=== PATIENT | female | born 1950 | race Caucasian/White ===

== ENCOUNTER 2018-04-07 09:25 | Emergency (ER) | payer OTHER ==
[2018-04-07 09:38] VITALS: BP 137/65; PULSE 64; TEMP 98.6; BMI 24.9
--- NOTE | 2018-04-07 09:41 | PDOC ---
Attending Attestation - Resident Resident Name: Brenda Sepulveda - ED Attending Attestation I have performed the following: I have examined & evaluated the patient, The case was reviewed & discussed with the resident, I agree w/resident's findings & plan, Exceptions are as noted - HPI HPI: 04/07/18 09:50 67yo female with L middle finger distal tip redness and swelling. States she had her nails done a week ago and they cut her cuticle. Has been applying topical abx to the area, but the redness is still there and mild swelling. Full ROM of the finger. No ttp along the flexor tendon. No felon palpated, no paronychia palpated or visualized. No f/c. Sensation intact. No fluctuance. - Physicial Exam PE: 04/07/18 09:55 Gen: aaox3, nad, ambulates with a steady gait Ext: L hand middle finger distal phalanx mild redness, mild swelling, no felon palpated, no paronychia, midl erythema, mild ttp, no induration, no draining, no ttp along the flexor tendon sheath. brisk cap refill, no herpetic tejas - Medical Decision Making 04/07/18 09:40 I, Dr. Yamileth Sierra, DO, attest that this document has been prepared under my direction and personally reviewed by me in its entirety. I further attest, that it accurately reflects all work, treatment, procedures and medical decision -making performed by me. 04/07/18 09:56 a/p: 67yo female with L middle finger distal tip erythem and swelling -mild cellulitis of the distal tip of the finger -will give abx -recommended warm soaks -no felon or paronychia palpated or visualized -no flexor tenosynovitis -stable for dc to home discussed all reasons to return to the ED and follow up
--- NOTE | 2018-04-07 09:49 | PDOC ---
History of Present Illness - General Chief Complaint: Pain Stated Complaint: LEFT MIDDLE FINGER PAIN Time Seen by Provider: 04/07/18 09:31 History Source: Patient Exam Limitations: No Limitations - History of Present Illness Initial Comments: 04/07/18 09:40 67 year old woman with a history of hypothyroidism, diverticulitis who presents with 3 days of L middle finger swelling and erythema from the fingertip to the DIP. The patient denies trauma, fever or purulent drainage. She denies a history of diabetes. She reports that she got her nails done last week and felt that the skin on her finger may have broken at that time. She denies any numbness or tingling on the finger or hand. Denies muscle weakness. PCP: Dileep Past History - Past Medical History Allergies/Adverse Reactions: Allergies Allergy/AdvReac Type Severity Reaction Status Date / Time No Known Allergies Allergy Verified 04/07/18 09:42 Home Medications: Ambulatory Orders Clindamycin [Cleocin -] 150 mg PO TID 10 Days #90 capsule 04/07/18 Ibuprofen [Motrin Ib] 200 mg PO ONCE 04/07/18 Levothyroxine [Synthroid -] 88 mcg PO DAILY 04/07/18 Cardiac Disorders: Yes (SVT, ablation) COPD: No GI Disorders: Yes (DIVERTICULITIS) Thyroid Disease: Yes (HYPOTHYROIDISM) - Surgical History Abdominal Surgery: Yes (COLON RESECTION 10/2014) GI Surgery: Yes (Partial colon resection October 2014) - Suicide/Smoking/Psychosocial Hx Smoking History: Never smoked Have you smoked in the past 12 months: No Hx Alcohol Use: No Drug/Substance Use Hx: No Substance Use Type: None Hx Substance Use Treatment: No Review of Systems - Review of Systems Able to Perform ROS?: Yes Is the patient limited Ukrainian proficient: No Constitutional: No: Chills, Diaphoresis, Fever Respiratory: No: Shortness of Breath Cardiac (ROS): No: Chest Pain Integumentary: Yes: Change in Hair/Nails, Erythema. No: Bruising, Flushing, Lumps, Pallor, Pruritus *Physical Exam - Vital Signs Last Vital Signs Temp Pulse Resp BP Pulse Ox 98.6 F 64 16 137/65 100 04/07/18 09:26 04/07/18 09:26 04/07/18 09:26 04/07/18 09:04/07/18 09:26 - Physical Exam Comments: 04/07/18 09:49 GENERAL: Awake, alert, and fully oriented, in no acute distress HEAD: No signs of trauma, normocephalic, atraumatic EYES: EOMI, sclera anicteric, conjunctiva clear ENT: oropharynx clear without exudates. Moist mucosa NECK: Normal ROM, supple EXTREMITIES : Normal inspection, Normal range of motion, no edema. L middle fingertip to DIP erythematous and swollen without paronychia or pus collection NEUROLOGICAL: Cranial nerves II through XII grossly intact. Normal speech, normal gait, no focal sensorimotor deficits SKIN: Warm, Dry, normal turgor, no rashes or lesions noted Moderate Sedation - Procedure Monitoring Vital Signs: Procedure Monitoring Vital Signs Temperature 98.6 F 04/07/18 09:26 Pulse Rate 64 04/07/18 09:26 Respiratory Rate 16 04/07/18 09:26 Blood Pressure 137/65 04/07/18 09:26 O2 Sat by Pulse Oximetry (%) 100 04/07/18 09:26 Medical Decision Making - Medical Decision Making 04/07/18 10:01 67 year old woman with a history of hypothyroidism, diverticulitis who presents with 3 days of L middle finger swelling and erythema from the fingertip to the DIP. The patient denies trauma, fever or purulent drainage. She denies a history of diabetes. ED Course: Patient with cellulitic appearing digit w/o purulent drainage or neurovascular compromise Will treat with oral antibiotics and advise warm soaks. Patient given first dose of antibiotics. Given follow up instruction and return precautions. Patient expresses understand and agrees to plan. *DC/Admit/Observation/Transfer Diagnosis at time of Disposition: Cellulitis - Discharge Dispostion Disposition: HOME Condition at time of disposition: Good Decision to Admit order: No - Prescriptions Prescriptions: Clindamycin [Cleocin -] 150 mg PO TID 10 Days #90 capsule - Referrals Referrals: Yandy Falk [Primary Care Provider] - - Patient Instructions Printed Discharge Instructions: DI for Cellulitis -- Adult Additional Instructions: You were seen in the ED for complaints of finger swelling and redness. In the ED you were evaluated and given antibiotics. You were given a prescription for antibiotics, Clindamycin. Please take medication as directed. Soak your finger in warm water bath or warm towel for 10min several times a day. Return to the ED immediately if you experience worsening swelling of the finger , numbness, tingling, hand weakness or fever. - Post Discharge Activity
[2018-04-07] MEDS ORDERED: CLINDAMYCIN HCL 150 MG CAPSULE (FP) ONE (09:50)
[2018-04-07] MEDS ORDERED: CLINDAMYCIN PALMITATE HCL ORAL SOLUTION 75 MG/5 ML BOTTLE PO ONE (09:50)
[2018-04-07] MEDS ORDERED: CLINDAMYCIN HCL 150 MG CAPSULE (FP) PO ONE (09:55)
== END 2018-04-07 10:03 | disposition home or self-care (01) ==
LOC: FER 09:25 → SUPCPDRO 09:25 → FER 10:03
DX: L03.012 Cellulitis of left finger (principal); E03.9 Hypothyroidism, unspecified; E11.9 Type 2 diabetes mellitus without complications
CPT/HCPCS: 99281-25

== ENCOUNTER 2018-04-09 09:15 | Emergency (ER) | payer OTHER ==
--- NOTE | 2018-04-09 09:17 | PDOC ---
History of Present Illness - General Chief Complaint: Redness To Affected Area Stated Complaint: LEFT MIDDLE FINGER PAIN - History of Present Illness Initial Comments: The patient is a 67F w/ a history of hypothyroidism who presents for evaluation of L middle finger pain/redness that has been worsening for 5d. The patient was seen here on Monday, told that she did not have a collection that could be drained and was prescribed Clindamycin for her cellulitis. She has been taking the antibiotics but states that the pain has continued to worsen. She endorses a dull/achy, non-radiating, constant L middle finger pain that is mildly alleviated by Tylenol. Denies fevers/chills, LYON, vision changes, chest pain, SOB, or changes in strength/sensation. 04/09/18 09:50 Past History - Past Medical History Allergies/Adverse Reactions: Allergies Allergy/AdvReac Type Severity Reaction Status Date / Time No Known Allergies Allergy Verified 04/07/18 09:42 Home Medications: Ambulatory Orders Clindamycin [Cleocin -] 450 mg PO Q8H #90 capsule 04/07/18 Ibuprofen [Motrin Ib] 200 mg PO ONCE 04/07/18 Levothyroxine [Synthroid -] 88 mcg PO DAILY 04/07/18 Cardiac Disorders: Yes (SVT, ablation) COPD: No GI Disorders: Yes (DIVERTICULITIS) Thyroid Disease: Yes (HYPOTHYROIDISM) - Surgical History Abdominal Surgery: Yes (COLON RESECTION 10/2014) GI Surgery: Yes (Partial colon resection October 2014) - Suicide/Smoking/Psychosocial Hx Smoking History: Never smoked Have you smoked in the past 12 months: No Hx Alcohol Use: No Drug/Substance Use Hx: No Substance Use Type: None Hx Substance Use Treatment: No Review of Systems - Review of Systems Able to Perform ROS?: Yes Comments:: GENERAL/CONSTITUTIONAL: No fever or chills. No weakness RESPIRATORY: Denies cough, hemoptysis GASTROINTESTINAL: +nausea w/ Abx; Denies V/C/D MUSCULOSKELETAL: +chronic arthritis; +L middle finger pain SKIN: +L middle finger redness HEMATOLOGIC/LYMPHATIC: No anemia, easy bleeding, or history of blood clots 04/09/18 09:52 Is the patient limited Sinhala proficient: No *Physical Exam - Vital Signs Vital Signs Temp Pulse Resp BP Pulse Ox 98.2 F 60 16 123/67 100 04/09/18 09:16 04/09/18 09:16 04/09/18 09:16 04/09/18 09:16 04/09/18 09:16 04/09/18 09:53 - Physical Exam Comments: GENERAL: Awake, alert, and fully oriented, in no acute distress HEAD: No signs of trauma, normocephalic, atraumatic EYES: PERRLA, EOMI, sclera anicteric, conjunctiva clear LUNGS: No distress, speaks full sentences, clear to auscultation bilaterally HEART: Regular rate and rhythm, normal S1 and S2, no murmurs appreciated, peripheral pulses normal and equal bilaterally EXTREMITIES : L lateral middle finger paronychia w/ mild surrounding erythema. BUE FROM. NEUROLOGICAL: Sensation to BUE intact and equal b/l, strength 5/5 throughout SKIN: mild L middle finger erythema surrounding L later paronychia 04/09/18 09:53 Procedures - Incision and Drainage I&D Site: Left: Other (L middle finger (paronychia)) Anesthesia: 1% Lidocaine Volume(ml): 2 Blade Size: 11 Attempts: 1 (Single incision made into later nail bed with approximately 1cc of purulent fluid expressed.) Plain Packing: No Complications: none (Patient tolerated the procedure well) Dressing: Yes (Bacitracin and band-aid applied) Medical Decision Making - Medical Decision Making The patient is a 67F w/ a history of hypothyroidism and diverticulitis who presents for evaluation of L middle finger paronychia ED Course L middle finger digital block and subsequent I&D, for full details refer to procedure note Patient given note for flight missed today Wound care, discharge instructions, and return precautions given -Pt to complete Clindamycin prescription received on 04/07/2018 Patient in agreement and verbalized understanding Dispo: home 04/09/18 09:57 *DC/Admit/Observation/Transfer Diagnosis at time of Disposition: Paronychia - Discharge Dispostion Disposition: HOME Condition at time of disposition: Improved Decision to Admit order: No - Referrals Referrals: Yandy Falk [Primary Care Provider] - - Patient Instructions Printed Discharge Instructions: DI for Paronychia Additional Instructions: You were seen in the Emergency Department today for evaluation of a left middle finger paronychia (infection) which was drained. Review the handout provided at discharge. Be sure to wash you hands frequently, pat dry, and keep the area clean. Do not apply nail guinean until the area is completely healed. Continue the antibiotics you were prescribed. Return to the Emergency Department if you develop fevers/chills, worsening pain , worsening redness, change in sensation/strength, or any new/concerning symptoms. - Post Discharge Activity Forms/Work/School Notes: Back to Work
[2018-04-09 09:24] VITALS: BP 123/67; PULSE 60; TEMP 98.2; BMI 24.8
[2018-04-09] MEDS ORDERED: LIDOCAINE 1%/EPI 1:100000 (20 ML MULTI DOSE VIAL) INF ONE (09:30)
[2018-04-09] MEDS ORDERED: LIDOCAINE HCL 1%, 10 MG/ML (20ML VIAL) ONE (09:31)
--- NOTE | 2018-04-09 11:26 | PDOC ---
Attending Attestation - Resident Resident Name: BonniesarahLissaMat - ED Attending Attestation I have performed the following: I have examined & evaluated the patient, The case was reviewed & discussed with the resident, I agree w/resident's findings & plan, Exceptions are as noted - HPI HPI: 04/09/18 17:26 Reviewed residents HPI - Physicial Exam PE: 04/09/18 17:26 Reviewed residents PE - Medical Decision Making 04/09/18 17:26 Patient on clindamycin for infected finger now with interval development of paronychia Under sterile conditions digital nerve block performed paronychia drained with removal of 1 mL of pus cleaned bandaged patient will continue clindamycin return to ED for wound check in 2 days Findings, the need for follow-up and strict return instructions discussed with patient.
== END 2018-04-09 09:59 | disposition home or self-care (01) ==
LOC: FER 09:15
PROC: 0H9QXZZ Drainage of Finger Nail, External Approach (ICD-10-PCS; principal; 2018-04-09)
DX: L03.012 Cellulitis of left finger (principal); E03.9 Hypothyroidism, unspecified; E11.9 Type 2 diabetes mellitus without complications
CPT/HCPCS: 10060; 99282-25

== ENCOUNTER 2018-04-11 12:41 | Inpatient (IN) | payer OTHER ==
--- NOTE | 2018-04-11 13:30 | PDOC ---
History of Present Illness - General Chief Complaint: Wound Stated Complaint: LEFT 3RD FINGER INFECTION Time Seen by Provider: 04/11/18 12:46 History Source: Patient Exam Limitations: No Limitations - History of Present Illness Initial Comments: 04/11/18 13:37 67F w/ a history of hypothyroidism who presents for evaluation of L middle finger pain/redness that has been worsening for 5d, with initial presentation here in the ED for finger cellulitis after cuticle injury during manicure session, and started on clindamycin at that time, then on 04/09/18 for development of paronychia of left middle finger, s/p I&D at that time, has been on clindamycin x over 1 week already. Left finger redness spreading along the inner aspect. No fever or chills, no drainage. No paresthesias or weakness. She notes throbbing intermittently at times. ROS: Constitutional: no fevers or chills. MUSCULOSKELETAL: finger pain. SKIN: +finger erythema. no discharge, no rash. No wounds. Hematologic: no easy bruising/bleeding. No weakness, numbness or tingling. Allergic/Immunologic: no allergies All other systems reviewed and negative, or as documented in HPI. PE: General: NAD, well appearing Vascular: 2+ radialis pulses symmetric and equal. Neuro: distal guest service supervisor strength 5/5. sensation grossly intact in median/radial/ ulnar distribution. MSK: soft compartments, Cap refill <2 sec. 2+ radialis pulses bilaterally and symmetric. FDP/FDS intact. no joint tenderness. FROM. Skin: warm and well perfused. Left middle finger at nailbed with mild erythema and dry scabbing appearance, no active drainage. Some streaking of erythema to inner aspect of left middle finger. nonbleeding, nontender. 04/11/18 13:37 Past History - Past Medical History Allergies/Adverse Reactions: Allergies Allergy/AdvReac Type Severity Reaction Status Date / Time No Known Allergies Allergy Verified 04/07/18 09:42 Home Medications: Ambulatory Orders Clindamycin [Cleocin -] 450 mg PO Q8H #90 capsule 04/07/18 Levothyroxine [Synthroid -] 88 mcg PO DAILY 04/07/18 Cardiac Disorders: Yes (SVT, ablation) COPD: No GI Disorders: Yes (DIVERTICULITIS) Thyroid Disease: Yes (HYPOTHYROIDISM) - Surgical History Abdominal Surgery: Yes (COLON RESECTION 10/2014) GI Surgery: Yes (Partial colon resection October 2014) - Suicide/Smoking/Psychosocial Hx Smoking History: Never smoked Have you smoked in the past 12 months: No Information on smoking cessation initiated: No Hx Alcohol Use: Yes (SOCIAL) Drug/Substance Use Hx: No Substance Use Type: None Hx Substance Use Treatment: No *Physical Exam - Vital Signs Last Vital Signs Temp Pulse Resp BP Pulse Ox 98.5 F 62 16 117/66 99 04/11/18 12:42 04/11/18 12:42 04/11/18 12:42 04/11/18 12:42 04/11/18 12:42 Moderate Sedation - Procedure Monitoring Vital Signs: Procedure Monitoring Vital Signs Temperature 98.5 F 04/11/18 12:42 Pulse Rate 62 04/11/18 12:42 Respiratory Rate 16 04/11/18 12:42 Blood Pressure 117/66 04/11/18 12:42 O2 Sat by Pulse Oximetry (%) 99 04/11/18 12:42 ED Treatment Course - LABORATORY CBC & Chemistry Diagram: 04/11/18 14:30 04/11/18 14:30 Medical Decision Making - Medical Decision Making 04/11/18 14:52 hpi as documented VS Wnl. no fever. DDx finger cellulitis, abscess, paronychia, felon, osteomyelitis. tenosynovitis. Finger Xray neg for bony erosions, no osteomyelitis. degenerative changes basic labs and lytes now normal, no leukocytosis. defer blood cx with neg fever/ systemic toxicity. on clindamycin x 5 days, with some effect, had definitive I&D on 04/09/18. no fever or systemic toxicity. however, progressive finger cellulitis and tracking down finger, which is new. -no felon or paronychia palpated or visualized today, s/p drainage 2 days ago with improvement there. now progressive cellulitis. -no flexor tenosynovitis -IV abx broadened to vancomycin/ancef. as patient failed OP abx (clindamycin x 5d) -ID cs as inpatient - no wound cultures from prior to identify organism. dispo: admit observation for finger cellulitis, failing OP abx, changed to IV abx and further medical management. 04/11/18 14:55 04/11/18 17:00 04/13/18 07:30 *DC/Admit/Observation/Transfer Diagnosis at time of Disposition: Cellulitis, finger Qualifiers: Laterality: left Qualified Code(s): L03.012 - Cellulitis of left finger - Discharge Dispostion Condition at time of disposition: Stable Decision to Admit order: Yes Decision to Admit order Date/Time: 04/11/18 17:00 Decision to Admit Order Category Date Time Status Decision to Admit to Hospital Routine Admission 04/11/18 16:59 Ordered - Referrals - Patient Instructions - Post Discharge Activity
[2018-04-11] MEDS ORDERED: IBUPROFEN 600 MG TABLET (FP) PO ONE ×2 (13:31→13:49)
[2018-04-11 14:42] LABS: EOS % 5.2 % (0-4.5); HEMATOCRIT 39.5 % (32.4-45.2); HEMOGLOBIN 13.1 GM/dl (10.7-15.3); LYMPH % 30.8 % (8-40); MCH 31.5 pg (25.7-33.7); MCHC 33.3 g/dl (32.0-36.0); MEAN CELL VOLUME 94.8 fl (80-96); MEAN PLT VOLUME 8.3 fl (7.5-11.1); PLATELET COUNT 332 K/MM3 (134-434); RBC 4.17 M/mm3 (3.60-5.2); RDW 11.6 % (11.6-15.6)
[2018-04-11 14:56] LABS: ANION GAP 5 MMOL/L (8-16); BLOOD UREA NITROGEN 13 mg/dl (7-18); CALCIUM 9.5 mg/dl (8.5-10); CHLORIDE 100 mmol/L (98-107); CO2 28 mmol/L (21-32); CREATININE 0.6 mg/dl (0.55-1.3); GLUCOSE,RANDOM 90 mg/dl (74-106); POTASSIUM 4.2 mmol/L (3.5-5.1); SODIUM 133 mmol/L (136-145)
[2018-04-11] MEDS ORDERED: CEFAZOLIN 1 GM in DEXTROSE 5%-WATER - 50 ML IVPB ONE (16:41)
[2018-04-11] MEDS ORDERED: VANCOMYCIN 1,000 MG in DEXTROSE 5%-WATER - 250 ML IVPB ONE (16:43)
[2018-04-11] MEDS ORDERED: VANCOMYCIN 1,000 MG VIAL (RESTRICTED TO ID ONLY) ONE (16:49)
[2018-04-11] MEDS ORDERED: ceFAZolin SODIUM 1 GM VIAL ONE (16:50)
--- NOTE | 2018-04-11 18:43 | HP ---
Admitting History and Physical - Primary Care Physician PCP: marcy - Admission Chief Complaint: Left middle finger pain, swelling and redness History of Present Illness: 67 year old woman with a history of hypothyroidism, diverticulitis and SVT s/p ablation presents to ED for third evaluation of progressive Left middle finger pain and swelling over the course of 1.5 weeks. Pt reports symptoms started one week after getting her nails done. she denies fever/chills/N/V/LYON. On her first ED presentation on 04/07/18, pt was discharged home with clindamycin 150mg TID x 10days. She represented two days later on 04/09/18 with L middle finger paronychia and underwent L middle finger digital block and subsequent I&D. Pt was encouraged to complete clindamycin course. Today, pt reports worsening left middle finger pain/redness despite prior treatment. In ED Finger Xray neg for bony erosions, no osteomyelitis. degenerative changes. Vitals: BP 117/66, HR 62, RR 16, T 98.5, O2 sat 99%. Decision made to admit patient for IV abx with possible hand consult. History Source: Patient Limitations to Obtaining History: No Limitations - Past Medical History Gastrointestinal: Yes: Diverticulosis ...: No - Past Surgical History Past Surgical History: Yes: Colectomy (partial (10/2014)) Additional Past Surgical History: SVT ablation - Advance Directives Advance Directives: Yes: Health Care Proxy (: Benoit [phone] daughter: Padmaja [phone]) - Smoking History Smoking history: Never smoked Have you smoked in the past 12 months: No - Alcohol/Substance Use Hx Alcohol Use: Yes (SOCIAL) History of Substance Use: reports: None - Social History Usual Living Arrangement: Yes: With Spouse ADL: Independent Occupation: Homemaker History of Recent Travel: No Other Social History: Born in [place], emigrated at age 17 Home Medications - Allergies Allergies/Adverse Reactions: Allergies Allergy/AdvReac Type Severity Reaction Status Date / Time No Known Allergies Allergy Verified 04/07/18 09:42 - Home Medications Home Medications: Ambulatory Orders Clindamycin [Cleocin -] 450 mg PO Q8H #90 capsule 04/07/18 Levothyroxine [Synthroid -] 88 mcg PO DAILY 04/07/18 Family Disease History - Family Disease History Family Disease History: Diabetes: Brother, Heart Disease: Mother ( (75) [place]), Other: Father ( (75) Stroke) Review of Systems - Review of Systems Constitutional: reports: No Symptoms Eyes: reports: No Symptoms HENT: reports: No Symptoms Neck: reports: No Symptoms Cardiovascular: reports: No Symptoms Respiratory: reports: No Symptoms Gastrointestinal: reports: No Symptoms Genitourinary: reports: No Symptoms Musculoskeletal: reports: No Symptoms Integumentary: reports: Erythema (left middle finger) Neurological: reports: No Symptoms Endocrine: reports: No Symptoms Hematology/Lymphatic: reports: No Symptoms Psychiatric: reports: No Symptoms Physical Examination Vital Signs: Vital Signs Temperature 98.5 F 04/11/18 12:42 Pulse Rate 62 04/11/18 12:42 Respiratory Rate 16 04/11/18 12:42 Blood Pressure 117/66 04/11/18 12:42 O2 Sat by Pulse Oximetry (%) 99 04/11/18 12:42 Constitutional: Yes: Well Nourished, No Distress, Calm Eyes: Yes: Conjunctiva Clear, EOM Intact, PERRL HENT: Yes: Atraumatic, Normocephalic Neck: Yes: Supple, Trachea Midline Cardiovascular: Yes: Regular Rate and Rhythm Respiratory: Yes: Regular, CTA Bilaterally Gastrointestinal: Yes: Normal Bowel Sounds, Soft ...Rectal Exam: Yes: Deferred Musculoskeletal: Yes: WNL Extremities: Yes: WNL Edema: No Peripheral Pulses WNL: Yes Peripheral Pulses: Left Radial: 2+, Right Radial: 2+, Left Doralis Pedis: 2+, Right Dorsalis Pedis: 2+ Integumentary: Yes: Erythema (mild redness surrounding nail bed of middle finger , no open wound) Neurological: Yes: Alert, Oriented ...Motor Strength: WNL Psychiatric: Yes: WNL Labs: CBC, BMP 04/11/18 14:30 04/11/18 14:30 Imaging - Results X-ray: Report Reviewed (X-ray Left finger 04/11/2018 Impression: no evidence of fracture or osteomyelitis) Problem List - Problems (1) Prophylactic measure Assessment/Plan: ambulate SC heparin BID bowel regimen: pericolace Tylenol PRN pain Code(s): Z29.9 - ENCOUNTER FOR PROPHYLACTIC MEASURES, UNSPECIFIED (2) Cellulitis, finger Assessment/Plan: trend WBC and temp curve admit for 24 IV abx, with transition to oral dosing at time of discharge. Cefazolin 1gm Q8hrs Code(s): L03.019 - CELLULITIS OF UNSPECIFIED FINGER Qualifiers: Laterality: left Qualified Code(s): L03.012 - Cellulitis of left finger (3) Hypothyroid Assessment/Plan: synthroid 88mcg daily Code(s): E03.9 - HYPOTHYROIDISM, UNSPECIFIED Assessment/Plan Full code home after 24hrs abx Visit type - Emergency Visit Emergency Visit: Yes ED Registration Date: 04/11/18 Care time: The patient presented to the Emergency Department on the above date and was hospitalized for further evaluation of their emergent condition. - New Patient This patient is new to me today: Yes Date on this admission: 04/11/18 - Critical Care Critical Care patient: No
[2018-04-11] MEDS: CEFAZOLIN 1 GM/D5W 1 GM/50 ML BAG IVPB SCH (20:38)
[2018-04-11] MEDS: ACETAMINOPHEN 500 MG TABLET (FP) PO SCH (21:32)
[2018-04-11] MEDS: SENNOSIDES/DOCUSATE COMBO (SENNA PLUS) TABLET (UD) PO SCH (21:32)
[2018-04-11] MEDS: HEPARIN NA (PORCINE) 5,000 UNITS/ML 1ML VIAL SQ SCH (21:33)
[2018-04-12 02:27] VITALS: BMI 23.3
[2018-04-12] MEDS: CEFAZOLIN 1 GM/D5W 1 GM/50 ML BAG IVPB SCH ×3 (02:46→18:53)
[2018-04-12] MEDS: LEVOTHYROXINE NA 88 MCG TABLET (FP) PO SCH (06:14)
[2018-04-12] MEDS: ACETAMINOPHEN 500 MG TABLET (FP) PO SCH ×3 (06:14→21:19)
[2018-04-12] MEDS: HEPARIN NA (PORCINE) 5,000 UNITS/ML 1ML VIAL SQ SCH ×2 (11:46→21:20)
--- NOTE | 2018-04-12 17:09 | PN ---
Physical Exam: SUBJECTIVE: Patient seen and examined OBJECTIVE: Vital Signs Period Temp Pulse Resp BP Sys/Gordon Pulse Ox Last 24 Hr 98.1 F-98.4 F 60-71 16-18 91-108/44-52 96-97 GENERAL: The patient is awake, alert, and fully oriented, in no acute distress. LEFT HAND: middle finger with induration, redness and dried pus around the nail bed; swelling and tenderness to DIP; no streaking Active Medications Generic Name Dose Route Start Last Admin Trade Name Aissatou PRN Reason Stop Dose Admin Acetaminophen 1,000 mg 04/11/18 22:00 04/12/18 14:32 Tylenol - PO 1,000 mg TID JAILENE Administration Heparin Sodium (Porcine) 5,000 unit 04/11/18 22:00 04/12/18 11:46 Heparin - SQ 5,000 unit BID JAILENE Administration Cefazolin Sodium 1 gm in 50 mls @ 100 mls/hr 04/11/18 19:30 04/12/18 10:00 Ancef 1 Gm Premixed Ivpb - IVPB 100 mls/hr Q8H-IV JAILENE Administration Levothyroxine Sodium 88 mcg 04/12/18 07:00 04/12/18 06:14 Synthroid - PO 88 mcg AM JAILENE Administration Senna/Docusate Sodium 1 tablet 04/11/18 22:00 04/11/18 21:32 Pericolace - PO 1 tablet HS JAILENE Administration ASSESSMENT/PLAN 67 year-old female with a PMH significant for hypotyroidism, diverticulitis, and SVT s/p ablation. Admitted for cellulitis and paronychia of left middle finger after failing outpatient antibiotic therapy. Left middle finger paronychia/cellulitis --first seen in ED on 04/07, prescribed PO clindamycin --returned to ED on 04/09, I&D performed, advised to continue PO clindamycin --returned to ED on 04/11 with increasing erythema and streaking redness along the inner aspect of the finger --started on cefazolin q8h --surgery consult requested Visit type - Emergency Visit Emergency Visit: Yes ED Registration Date: 04/11/18 Care time: The patient presented to the Emergency Department on the above date and was hospitalized for further evaluation of their emergent condition. - New Patient This patient is new to me today: Yes Date on this admission: 04/13/18 - Critical Care Critical Care patient: No
[2018-04-12] MEDS: SENNOSIDES/DOCUSATE COMBO (SENNA PLUS) TABLET (UD) PO SCH (21:19)
[2018-04-13] MEDS: CEFAZOLIN 1 GM/D5W 1 GM/50 ML BAG IVPB SCH ×3 (01:30→17:47)
[2018-04-13] MEDS: ACETAMINOPHEN 500 MG TABLET (FP) PO SCH ×3 (06:35→21:33)
[2018-04-13] MEDS: LEVOTHYROXINE NA 88 MCG TABLET (FP) PO SCH (06:36)
[2018-04-13] MEDS: HEPARIN NA (PORCINE) 5,000 UNITS/ML 1ML VIAL SQ SCH ×3 (09:25→21:38)
--- NOTE | 2018-04-13 16:34 | PN ---
Progress Note (short form) - Note Progress Note: 67 yo female with left middle finger paronychia. Patient states she she is feeling better today than yesterday. Notes decreased swelling, redness and pain. Pain scale 2/10. No fevers, chills or discharge. Last Vital Signs Temp Pulse Resp BP Pulse Ox 98.4 F 57 L 18 105/54 L 96 04/13/18 14:04 04/13/18 14:04 04/13/18 14:04 04/13/18 14:04 04/13/18 14:04 L UE 3rd digit: Mild swelling and redness of the distal phalanx. No fluctuance. Trace tenderness to deep palpation of distal phalanx. Cap Refill intact. Neurovascularly intact. A: Left middle finger paronychia P: Patient responding well to abx. Continue IV abx. Can be discharged home tomorrow on PO Keflex. F/u in office if any concerns next week.
--- NOTE | 2018-04-13 17:48 | PN ---
Physical Exam: SUBJECTIVE: Patient seen and examined at bedside. OBJECTIVE: Vital Signs Period Temp Pulse Resp BP Sys/Gordon Pulse Ox Last 24 Hr 97.6 F-98.4 F 56-66 18-19 92-148/49-59 95-97 GENERAL: The patient is awake, alert, and fully oriented, in no acute distress. LEFT HAND: middle finger with induration, redness and dried pus around the nail bed; swelling and tenderness to DIP; no streaking Active Medications Generic Name Dose Route Start Last Admin Trade Name Aissatou PRN Reason Stop Dose Admin Acetaminophen 1,000 mg 04/11/18 22:00 04/13/18 13:39 Tylenol - PO 1,000 mg TID JAILENE Administration Heparin Sodium (Porcine) 5,000 unit 04/11/18 22:00 04/13/18 09:25 Heparin - SQ Not Given BID JAILENE Cefazolin Sodium 1 gm in 50 mls @ 100 mls/hr 04/11/18 19:30 04/13/18 09:24 Ancef 1 Gm Premixed Ivpb - IVPB 100 mls/hr Q8H-IV JAILENE Administration Levothyroxine Sodium 88 mcg 04/12/18 07:00 04/13/18 06:36 Synthroid - PO 88 mcg AM JAILENE Administration Senna/Docusate Sodium 1 tablet 04/11/18 22:00 04/12/18 21:19 Pericolace - PO 1 tablet HS JAILENE Administration ASSESSMENT/PLAN: 67 year-old female with a PMH significant for hypotyroidism, diverticulitis, and SVT s/p ablation. Admitted for cellulitis and paronychia of left middle finger after failing outpatient antibiotic therapy. Left middle finger paronychia/cellulitis --first seen in ED on 04/07, prescribed PO clindamycin --returned to ED on 04/09, I&D performed, advised to continue PO clindamycin --returned to ED on 04/11 with increasing erythema and streaking redness along the inner aspect of the finger --started on cefazolin q8h Visit type - Emergency Visit Emergency Visit: Yes ED Registration Date: 04/11/18 Care time: The patient presented to the Emergency Department on the above date and was hospitalized for further evaluation of their emergent condition. - New Patient This patient is new to me today: Yes Date on this admission: 04/13/18 - Critical Care Critical Care patient: No
[2018-04-13] MEDS: SENNOSIDES/DOCUSATE COMBO (SENNA PLUS) TABLET (UD) PO SCH (21:33)
[2018-04-14] MEDS: CEFAZOLIN 1 GM/D5W 1 GM/50 ML BAG IVPB SCH ×2 (02:09→09:17)
[2018-04-14] MEDS: LEVOTHYROXINE NA 88 MCG TABLET (FP) PO SCH (06:48)
[2018-04-14] MEDS: ACETAMINOPHEN 500 MG TABLET (FP) PO SCH (06:48)
[2018-04-14] MEDS: HEPARIN NA (PORCINE) 5,000 UNITS/ML 1ML VIAL SQ SCH (09:17)
[2018-04-14] MEDS ORDERED: KETOROLAC TROMETHAMINE 10 MG TABLET PO ONE (09:46)
--- NOTE | 2018-04-14 12:08 | DS ---
Physical Exam: SUBJECTIVE: Patient seen and examined, pt s/p I&D, finger with mild redness, no swelling, pt feels throbbing pain, toradol give x 1, pt medically stable for discharge. OBJECTIVE: Vital Signs Period Temp Pulse Resp BP Sys/Gordon Pulse Ox Last 24 Hr 97.6 F-98.4 F 54-70 16-19 90-121/35-54 95-98 PHYSICAL EXAM GENERAL: The patient is awake, alert, and fully oriented, in no acute distress. HEAD: Normal with no signs of trauma. EYES: PERRL, extraocular movements intact, sclera anicteric, conjunctiva clear. ENT: Ears normal, nares patent, oropharynx clear without exudates, moist mucous membranes. NECK: Trachea midline, full range of motion, supple. LUNGS: Breath sounds equal, clear to auscultation bilaterally, no wheezes, no crackles, no accessory muscle use. HEART: Regular rate and rhythm, S1, S2 without murmur, rub or gallop. ABDOMEN: Soft, nontender, nondistended, normoactive bowel sounds, no guarding, no rebound, no hepatosplenomegaly, no masses. EXTREMITIES: 2+ pulses, warm, well-perfused, no edema. NEUROLOGICAL: Cranial nerves II through XII grossly intact. Normal speech, gait not observed. PSYCH: Normal mood, normal affect. SKIN: Warm, dry, normal turgor, no rashes or lesions noted. LABS HOSPITAL COURSE: Date of Admission:04/11/18 Date of Discharge: 04/14/18 67 year-old female with a PMH significant for hypotyroidism, diverticulitis, and SVT s/p ablation. Admitted for cellulitis and paronychia of left middle finger after failing outpatient antibiotic therapy. Left middle finger paronychia/cellulitis-improved --first seen in ED on 04/07, prescribed PO clindamycin --returned to ED on 04/09, I&D performed, advised to continue PO clindamycin --returned to ED on 04/11 with increasing erythema and streaking redness along the inner aspect of the finger --started on cefazolin q8h, seen by ortho s/p I&D, switched to oral keflex stable for discharge Advised to follow up with PCP in 1 week, follow up with Ortho if concerns. Minutes to complete discharge: 30 Discharge Summary Reason For Visit: CELLULITIS Current Active Problems Cellulitis, finger (Acute) Paronychia of left middle finger (Acute) Paronychia of left middle finger (Acute) Prophylactic measure (Acute) Condition: Stable - Instructions Diet, Activity, Other Instructions: please follow up with PCP in 1 week if pain worsens or finger swells follow up with Surgery in their office next week Antibiotics sent to your pharmacy Referrals: Kasandra Page PA [Physician Career Manager] - 1 Week (follow up if needed with ortho ) Disposition: HOME - Home Medications Comprehensive Discharge Medication List: Ambulatory Orders Levothyroxine [Synthroid -] 88 mcg PO DAILY 04/07/18 Cephalexin [Keflex] 500 mg PO BID 6 Days #12 capsule 04/14/18 This patient is new to me today: Yes Date on this admission: 04/14/18 Emergency Visit: Yes ED Registration Date: 04/11/18 Care time: The patient presented to the Emergency Department on the above date and was hospitalized for further evaluation of their emergent condition. Critical Care patient: No - Discharge Referral Referred to [facility] No
[2018-04-14 13:17] VITALS: BP 129/60; PULSE 55; TEMP 97.5
== END 2018-04-14 12:30 | disposition home or self-care (01) | DRG 603 ==
LOC: FER 12:41 → FM/S 20:03
PROVIDERS: ADMIT Internal Medicine; ATTEND Nurse Practitioner Family
DX: L03.012 Cellulitis of left finger (principal); E03.9 Hypothyroidism, unspecified
CPT/HCPCS: 10060; 36415; 73140-TC-LT-FY; 80048; 85025; 99282-25; J1644

== ENCOUNTER 2020-04-01 10:48 | Emergency (ER) | payer OTHER | END 2020-04-01 13:02 | disposition home or self-care (01) | LOC: JVIRT 10:48 | DX: Z11.52 Encounter for screening for COVID-19 (principal) | CPT/HCPCS: G2012-GT ==

== ENCOUNTER 2020-04-07 17:12 | Emergency (ER) | payer OTHER ==
[2020-04-07 17:30] VITALS: BP 139/68; PULSE 61; TEMP 98.7; BMI 22.3
== END 2020-04-07 18:52 | disposition home or self-care (01) ==
LOC: FER 17:12
DX: M25.512 Pain in left shoulder (principal); U07.1 COVID-19
CPT/HCPCS: 71045-TC-FY; 93005; 99284-25

== ENCOUNTER 2021-05-16 13:17 | Emergency (ER) | payer OTHER ==
[2021-05-16 13:31] VITALS: BP 146/57; PULSE 65; TEMP 99.1; BMI 22.3
== END 2021-05-16 14:35 | disposition home or self-care (01) ==
LOC: FER 13:17
DX: H92.01 Otalgia, right ear (principal)
CPT/HCPCS: 99283-25

== ENCOUNTER 2022-04-21 09:38 | Emergency (ER) | payer OTHER ==
[2022-04-21 09:47] VITALS: BP 134/69; PULSE 78; RESP 18; TEMP 97.9; BMI 27.4
[2022-04-21 12:09] LABS: HEMATOCRIT 38.2 % (32.4-45.2); HEMOGLOBIN 13.2 G/dL (10.7-15.3); MCH 32.6 pg (25.7-33.7); MCHC 34.7 g/dl (32.0-36.0); MEAN PLT VOLUME 8.1 fl (7.5-11.1); PLATELET COUNT 299.6 10^3/uL (134-434); RBC 4.06 10^6/uL (3.60-5.2); RDW 12.7 % (11.6-15.6); WHITE BLOOD COUNT 7.3 10^3/uL (4.0-10.8)
[2022-04-21 12:17] LABS: ALBUMIN 3.9 g/dl (3.4-5.0); BILIRUBIN,TOTAL 0.6 mg/dl (0.2-1); CALCIUM 9.1 mg/dl (8.5-10); CREATININE 0.6 mg/dl (0.55-1.3); TOT PROT 7.5 g/dl (6.4-8.2)
[2022-04-21 13:07] LABS: PLATELET ESTIMATE ADEQUATE
[2022-04-21] MEDS ORDERED: DOXYCYCLINE HYCLATE 100 MG CAPSULE PO ONE ×2 (13:54→13:57)
== END 2022-04-21 13:55 | disposition home or self-care (01) ==
LOC: FER 09:38
DX: R91.1 Solitary pulmonary nodule (principal); J18.9 Pneumonia, unspecified organism; R05.1 Acute cough
CPT/HCPCS: 0241U-QW; 36415; 71046-TC-FY; 71275-TC; 80053; 85027; 99285-25; Q9967

== ENCOUNTER 2022-12-27 13:03 | Emergency (ER) | payer OTHER ==
[2022-12-27 13:22] VITALS: BP 131/68; PULSE 64; RESP 18; TEMP 97.9; BMI 22.6
[2022-12-27 14:38] LABS: HEMATOCRIT 39.2 % (32.4-45.2); HEMOGLOBIN 13.3 G/dL (10.7-15.3); MEAN CELL VOLUME 94.2 fl (80-96); MEAN PLT VOLUME 8.1 fl (7.5-11.1); PLATELET COUNT 311.8 10^3/uL (134-434); RBC 4.16 10^6/uL (3.60-5.2)
[2022-12-27] MEDS ORDERED: MECLIZINE HCL 12.5 MG TABLET PO ONE (15:15)
[2022-12-27] MEDS ORDERED: MECLIZINE HCL 12.5 MG TABLET ONE (15:18)
[2022-12-27 15:28] LABS: PLATELET ESTIMATE ADEQUATE
[2022-12-27 15:53] LABS: POTASSIUM 3.8 mmol/L (3.5-5.1)
[2022-12-27 15:56] LABS: ALBUMIN 3.6 g/dl (3.4-5.0); BLOOD UREA NITROGEN 12.2 mg/dL (7-18); CALCIUM 9.5 mg/dL (8.5-10.1)
[2022-12-27 16:00] LABS: CREATININE 0.6 mg/dL (0.55-1.3)
[2022-12-27 16:01] LABS: BILIRUBIN,TOTAL 0.5 mg/dL (0.2-1); TOT PROT 7.5 g/dl (6.4-8.2)
== END 2022-12-27 16:28 | disposition home or self-care (01) ==
LOC: FER 13:03
DX: R42 Dizziness and giddiness (principal); R11.0 Nausea; H93.13 Tinnitus, bilateral
CPT/HCPCS: 36415; 70450-TC; 80053; 85027; 99284-25

== ENCOUNTER 2023-03-06 10:21 | Emergency (ER) | payer OTHER ==
[2023-03-06 10:25] VITALS: BP 147/70; PULSE 64; RESP 16; TEMP 98.3; BMI 22.3
[2023-03-06] MEDS ORDERED: ACETAMINOPHEN 1000 MG/100 ML BAG IVPB ONE (11:07)
[2023-03-06] MEDS ORDERED: ACETAMINOPHEN INJECTION 100 ML IVPB ONE (11:15)
[2023-03-06 12:23] LABS: HEMATOCRIT 34.4 % (32.4-45.2); HEMOGLOBIN 11.8 G/dL (10.7-15.3); MCH 31.9 pg (25.7-33.7); MCHC 34.2 g/dl (32.0-36.0); MEAN CELL VOLUME 93.2 fl (80-96); RBC 3.69 10^6/uL (3.60-5.2); RDW 13.1 % (11.6-15.6); WHITE BLOOD COUNT 8.9 10^3/uL (4.0-10.8)
[2023-03-06 12:24] LABS: BILIRUBIN,TOTAL 0.4 mg/dl (0.2-1); CALCIUM 9.6 mg/dl (8.5-10.1); CREATININE 0.5 mg/dl (0.6-1.3); POTASSIUM 4.2 mmol/L (3.5-5.1); TOT PROT 6.6 g/dl (6.4-8.2)
[2023-03-06 12:28] LABS: INR 0.96 (0.83-1.09); PROTHROMBIN TIME (PATIENT) 11.1 SEC (9.7-13.0)
[2023-03-06 12:31] LABS: ACTIVATED PTT 28.3 SECONDS (25.2-36.5)
[2023-03-06 12:57] LABS: EPITHELIAL CELLS 0-5 /hpf
[2023-03-06] MEDS ORDERED: KETOROLAC TROMETHAMINE 15 MG/ML VIAL IVPUSH ONE (14:01)
[2023-03-06] MEDS ORDERED: LIDOCAINE 5% TOPICAL PATCH TP ONE (14:01)
[2023-03-06] MEDS ORDERED: KETOROLAC TROMETHAMINE 15 MG/ML VIAL ONE (14:20)
[2023-03-06] MEDS ORDERED: LIDOCAINE 5% TOPICAL PATCH ONE (14:21)
[2023-03-06] MEDS ORDERED: LIDOCAINE PATCH REMOVAL MC SCH (22:00)
== END 2023-03-06 15:13 | disposition home or self-care (01) ==
LOC: FER 10:21
PROC: 3E033NZ Introduction of Analgesics, Hypnotics, Sedatives into Peripheral Vein, Percutaneous Approach (ICD-10-PCS; principal; 2023-03-06)
PROC: 3E0333Z Introduction of Anti-inflammatory into Peripheral Vein, Percutaneous Approach (ICD-10-PCS; 2023-03-06)
DX: R10.32 Left lower quadrant pain (principal); M54.50 Low back pain, unspecified; S39.012A Strain of muscle, fascia and tendon of lower back, initial encounter; X50.9XXA Other and unspecified overexertion or strenuous movements or postures, initial encounter; Y93.G3 Activity, cooking and baking
CPT/HCPCS: 36415; 74177-TC; 80053; 81003; 81015; 82550; 83605; 83690; 83735; 84484; 85027; 85610; 85730; 86850; 86900; 86901; 87086; 93005; 99285-25